=== PATIENT | female | born 1965 | race Caucasian/White ===

== ENCOUNTER → 2022-01-31 | Outpatient (CLI) | payer OTHER ==
--- NOTE | 2022-01-31 17:49 | Diagnostic Imaging Report ---
PROCEDURE: MRI lumbar spine. TECHNIQUE: Multiplanar, multisequence MRI of the lumbar spine was performed without contrast. INDICATION: Low back pain with left hip and leg pain. History of lumbar surgery. COMPARISON: None. FINDINGS: There is posterior fusion of the lumbar spine from L4 through S1 with bilateral pedicle screws and posterior fusion rods. Laminectomy changes are noted at L4 and L5. There are interbody disc spacers at L4-L5 and L5-S1. Alignment is normal. Vertebral body heights are preserved. No acute fracture is seen. The conus terminates in appropriate position. Soft tissues about the lumbar spine demonstrate no acute abnormality. There is scar tissue posteriorly. T12-L1: No significant disc bulge. No spinal canal or foraminal stenosis. L1-L2: No significant disc bulge. No spinal canal or foraminal stenosis. L2-L3: Diffuse disc bulge with facet arthropathy and ligamentous infolding. No spinal canal stenosis. No foraminal stenosis. L3-L4: Mild disc bulge and facet arthropathy. Ligamentous infolding. Mild spinal canal narrowing. No foraminal stenosis. L4-L5: No spinal canal stenosis. Mild right foraminal narrowing. There is no left foraminal stenosis. L5-S1: No spinal canal stenosis. Mild bilateral foraminal narrowing. IMPRESSION: 1. Posterior fusion from L4 through S1. No fluid collections are seen. 2. Degenerative changes, most notable at L3-L4 with marked facet arthropathy. Mild spinal canal and foraminal narrowing with no high-grade stenosis seen. Dictated by: Dictated on workstation # [id number]
== END ==
LOC: RAD 13:15
PROVIDERS: ATTEND Family Medicine
DX: M47.26 Other spondylosis with radiculopathy, lumbar region (principal); M48.061 Spinal stenosis, lumbar region without neurogenic claudication; Z98.1 Arthrodesis status
CPT/HCPCS: 72148